=== PATIENT | female | born 1980 | race African-American/Black ===

== ENCOUNTER 2016-12-30 08:54 | Day surgery (SDC) | payer OTHER ==
[~2016-12-30] VITALS: Ht 160 cm; Wt 67.7 kg
[2016-12-30 10:09] VITALS: Ht 160 cm; Wt 67.7 kg
[2016-12-30] MEDS ORDERED: LIDOCAINE 2% (SDV) 5 ML INJ ONE (10:33)
[2016-12-30] MEDS ORDERED: MIDAZOLAM 1 MG/ML 2 ML INJ ONE (10:33)
[2016-12-30] MEDS ORDERED: PROPOFOL 20 ML ONE (10:33)
[2016-12-30 10:35] VITALS: BP 135/82; PULSE 68; RESP 15
[2016-12-30] MEDS ORDERED: PLAQUENIL PO (11:12)
[2016-12-30] MEDS ORDERED: IRON SULFATE PO (11:12)
[2016-12-30] MEDS ORDERED: AMLODIPINE PO (11:12)
[2016-12-30] MEDS ORDERED: HCTZ PO (11:12)
--- NOTE | 2016-12-30 11:19 | GILP ---
DATE OF PROCEDURE: NAME OF PROCEDURE: Colonoscopy. SURGEON: Wilmar Ireland MD PREOPERATIVE DIAGNOSIS: Iron deficiency anemia. POSTOPERATIVE DIAGNOSES 1. Colonoscopy all the way to the cecum. 2. Redundant colon. 3. Internal hemorrhoids. 4. No colon neoplasm or any bleeding lesion identified. INDICATION FOR THE PROCEDURE: Ms. Kristen Mondragon is a 36-year-old female patient who was noted to h ave iron deficiency anemia. The patient was scheduled for colonoscopy for further evaluation. The procedure and possible complications are well explained to the patient. She understood and cons ented to the procedure. DESCRIPTION OF PROCEDURE: Under the influence of anesthesia, the colonoscope was carefully introduc ed in the rectum and under direct vision, it was advanced all the way to the cecum. FINDINGS: The patient had a redundant colon. She had internal hemorrhoids. No neoplasm or colitis or any other bleeding lesion was identified. She tolerated the procedure very well and there was no complication from the procedure. At the end of the procedures, she was awake with stable vital signs and she was discharged home to the care of her family. IMPRESSION: 1. Colonoscopy all the way to the cecum. 2. Redundant colon. 3. Internal hemorrhoids. 4. No colon neoplasm or any other bleeding lesion was identified. Dictated By: WILMAR ROGERS/LYUBOV Conf#: [id number] DID#: [id number]
[2016-12-30 11:27] VITALS: BP 138/96; PULSE 70; RESP 14
== END 2016-12-30 17:07 | disposition home or self-care (01) ==
LOC: GIL 08:54
PROVIDERS: ATTEND Internal Medicine Gastroenterology
DX: Q43.8 Other specified congenital malformations of intestine (principal); I10 Essential (primary) hypertension; K64.8 Other hemorrhoids
CPT/HCPCS: 45378; 84702; J2250; Z7610